=== PATIENT | female | born 1995 | race Hispanic/Latino ===

== ENCOUNTER 2019-04-13 15:29 | Outpatient (CLI) | payer BC ==
--- NOTE | 2019-04-13 16:07 | ULT ---
US Pelvic Trans vag W Doppler HISTORY: , no heart tones noted in office. COMPARISON: None. FINDINGS: Real-time imaging of the pelvis was obtained transabdominally as well as within endovaginal probe. This shows the presence of an intrauterine gestational sac and pole. The crown to rump length measurements are 1.1 cm corresponding to 7 weeks 1 day. Gestational sac measurements are 2.0 cm corresponding to 6 weeks 6 days. No motion or heart activity is seen. The right and left adnexa are normal in appearance. IMPRESSION: Nonviable intrauterine .
== END 2019-04-13 15:30 | disposition home or self-care (01) ==
LOC: SCSULT 15:29
PROVIDERS: ATTEND Family Medicine
DX: O20.0 Threatened abortion (principal)
CPT/HCPCS: 76856

== ENCOUNTER 2019-11-24 13:29 | Outpatient (CLI) | payer BC ==
--- NOTE | 2019-11-24 14:42 | ULT ---
EXAM: OB ultrasound COMPARISON: None HISTORY: female. Evaluate size, dates, and anatomy. TECHNIQUE: Multiplanar grayscale and color Doppler images were obtained in a transabdominal ult rasound. FINDINGS: There is a single live intrauterine with heart rate of 149 bpm. A survey wa s performed which is unremarkable. The head, intracranial structures, heart, stomach, kidneys, umbilical cord, umbilical cord insertion, spine, face, and extremities were evaluated and were unrema rkable. Estimated weight is 326 g. Average age of the fetus based off today's examination is 19 weeks 6 days. BPD 4.34 cm -- 19 weeks 1 day HC 17.00 cm -- 19 weeks 5 days AC 15.43 cm -- 20 weeks 5 days FL 3.05 cm -- 19 weeks 4 days The placenta is anterior in location without focal abnormality. DOROTHY is 11.4 cm which is normal. The cervix is normal in length. There is a low-lying placenta with its tip approximately 1.3 cm from the internal os. There is no evidence of placenta previa. IMPRESSION: 1. Single live intrauterine with estimated age of 19 weeks 6 days. 2. Low-lying placenta
== END 2019-11-24 13:30 | disposition home or self-care (01) ==
LOC: BICULT 13:29
PROVIDERS: ATTEND Family Medicine
DX: Z34.82 Encounter for supervision of other normal pregnancy, second trimester (principal); Z3A.19 19 weeks gestation of pregnancy
CPT/HCPCS: 76805

== ENCOUNTER 2020-01-06 14:58 | Outpatient (CLI) | payer BC ==
--- NOTE | 2020-01-06 16:20 | ULT ---
ULTRASOUND OBSTETRICAL COMPLETE: 01/06/20 HISTORY: ICD-10: O44.422, low lying placenta, NOS or without hemorrhage, second trimester in 24-year-old pre gnant female. FINDINGS: number: Rizvi lie: Breech Maternal cervix: 3.5 cm in length and closed. Placenta: Anterior. Distal tip is approximately 2 to 2.5 cm proximal to the internal cervical os. Amniotic fluid volume: Subjectively within normal limits. DOROTHY not measured. heart rate: 128 bpm The following anatomy is visualized, with no evidence of anomalies: Head, lateral ventricles, cerebellum, spine, upper limbs, lower limbs, four chamber heart, umbilical cord, cord insertion, stomach, kidneys, and bladder. Nose and lips not visualized. biometry: Head circumference (HC): 24.8 cm 27w 0d Biparietal diameter (BPD): 6.7 cm 26w 6d Abdominal circumference (AC): 23.2 cm 27w 4d Femur length (FL): 5.9 cm 26w 6d Average ultrasound age (AUA): 27w 1d Estimated date of delivery (SOWMYA): 04/05/2020 Last menstrual period (LMP): 07/08/2019 Gestational age by LMP: 26w 0d Estimated weight (EFW): 1034 g +/- 151 g (2 lb. 4 oz. +/- 5 oz.) IMPRESSION: 1. Live late second trimester intrauterine gestation. 2. Estimated gestational age of 27 weeks, 1 day. 3. Breech lie. 4. No anatomical abnormalities, but nose and lips not visualized. 5. Low lying placenta, but no placenta previa. jn [] POS: [facility]
== END 2020-01-06 14:59 | disposition home or self-care (01) ==
LOC: BICULT 14:58
PROVIDERS: ATTEND Family Medicine
DX: O44.42 Low lying placenta NOS or without hemorrhage, second trimester (principal); Z3A.27 27 weeks gestation of pregnancy; O32.1XX0 Maternal care for breech presentation, not applicable or unspecified
CPT/HCPCS: 76815

== ENCOUNTER 2020-03-23 13:37 | Outpatient (CLI) | payer BC ==
--- NOTE | 2020-03-23 16:57 | ULT ---
EXAM: OB ultrasound COMPARISON: 01/06/2020 HISTORY: Low-lying placenta. Follow-up evaluation. TECHNIQUE: Multiplanar grayscale and color Doppler transabdominal sonographic images are obtained. FINDINGS: There is a single intrauterine gestation in cephalic presentation. Cardiac Doppler demonstr ates heart tones with a heart rate of 132 beats per minute. The placenta is located anteriorly without evidence of placenta previa. The placenta was noted to be low-lying on the prior e xam (not appreciated on the current study. Amniotic fluid index is increased measuring 21 cm.. The cervical length based on transabdominal imaging measures 4.9 centimeters. biometry measurements: BPD 9 cm -- 36 weeks 4 days HC 32.74 cm -- 37 weeks 2 days AC 35.77 cm -- 39 weeks 5 days FL 7.15 cm -- 36 weeks 5 days The estimated gestational age by ultrasound is 37 weeks 4 days with an SOWMYA on04/09/2020. Gestational ag e by the last menstrual period is 38 weeks 1 day. The estimated weight by ultrasound is 3460 g (7 pounds, 10 ounces). This represents 68 percenti le for weight. This examination was not performed for evaluation of the anatomical structures IMPRESSION: 1. Single intrauterine gestation in cephalic presentation with heart tones documented. Estimat ed gestational age by ultrasound is 37 weeks 4 days. 2. Estimated weight is 3460 g (7 pounds, 10 ounces). 3. Amniotic fluid index is increased measuring 21 centimeters suggesting polyhydramnios.
== END 2020-03-23 13:38 | disposition home or self-care (01) ==
LOC: BICULT 13:37
PROVIDERS: ATTEND Family Medicine
DX: O44.43 Low lying placenta NOS or without hemorrhage, third trimester (principal); Z3A.37 37 weeks gestation of pregnancy
CPT/HCPCS: 76816

== ENCOUNTER 2020-04-08 14:27 | Inpatient (IN) | payer BC, OTHER ==
[2020-04-09] MEDS: Lactated Ringer's 1,000 ML IV SCH ×2 (01:06→08:39)
[2020-04-09 01:13] VITALS: BMI 35.1
[2020-04-09 01:37] LABS: Mean Corpuscular HGB CONC 35.2 g/dL (32.0-36.0); Mean Corpuscular Hemoglobin 31.3 pg (27.0-31.0); Mean Corpuscular Volume 88.9 fL (78.0-98.0); Mean Platelet Volume 9.1 fL (7.4-10.4); Platelet Count 224 thou/uL (130-400); RBC Distribution Width 11.7 % (11.5-14.5); Red Blood Cell (RBC) Count 4.16 mill/uL (4.20-5.40); White Blood Cell (WBC) Count 8.9 thou/uL (4.8-10.8)
[2020-04-09] MEDS ORDERED: Butorphanol Tartrate 1 MG/ML VIAL SLOW IVP PRN (01:40)
[2020-04-09] MEDS ORDERED: Acetaminophen 500 MG TAB PO PRN (01:40)
[2020-04-09] MEDS ORDERED: Promethazine HCl 25 MG/ML VIAL IM PRN (01:40)
[2020-04-09] MEDS ORDERED: Zolpidem Tartrate 5 MG TAB PO PRN (01:40)
[2020-04-09] MEDS ORDERED: Ondansetron PF 4 MG/2 ML Vial IVP PRN ×2 (01:40→13:41)
[2020-04-09] MEDS ORDERED: Lactated Ringer's 1,000 ML IV PRN (01:41)
[2020-04-09] MEDS ORDERED: Misoprostol 100 MCG TAB VAG SCH (01:45)
[2020-04-09] MEDS ORDERED: NS w/ Oxytocin 10 units 500 ML IVPB SCH (01:45)
[2020-04-09 02:16] LABS: HBSAg Index 0.18 S/CO (0-0.99); Hep B Surf Ag Non-Reactive S/CO (NonReactive)
[2020-04-09 04:59] LABS: Syphilis Antibody Nonreactive (Nonreactive); Syphilis Antibody Index 0.02 S/CO (<1.00 Non-Reactive)
[2020-04-09] MEDS ORDERED: Misoprostol 100 MCG TAB VAG PRN (05:00)
[2020-04-09] MEDS ORDERED: Lidocaine 1% (PF) 30 ML VIAL ONE (10:50)
[2020-04-09] MEDS: NS / Oxytocin 40 units/1000ml 1,000 ML ONE ×2 (11:05→13:10)
[2020-04-09] MEDS ORDERED: Misoprostol 200 MCG TAB ONE (11:14)
[2020-04-09] MEDS ORDERED: Methylergonovine 0.2 MG/ML VIAL ONE (11:23)
--- NOTE | 2020-04-09 11:37 | PDOC.EVN ---
Event Note - Event Note Event Note: Called to LDR by Dr. Kenyon. VS are stable. Pt. with atony s/p . Pit drip, Cytotec MS and Methergine given. Good response noted with minimal bleeding now. Pre delivery HGB=13. EBL estimated at 700 cc. Will observe closely. Recommend Cytotec 200 mcg q 6 hrs x 3-4 doses .
[2020-04-09] MEDS ORDERED: NS / Oxytocin 40 units/1000ml 1,000 ML ONE (13:07)
[2020-04-09] MEDS ORDERED: diphenhydrAMINE 25 MG CAP PO PRN (13:41)
[2020-04-09] MEDS ORDERED: Preparation H Ointment 28 GM TUBE PR PRN (13:41)
[2020-04-09] MEDS ORDERED: hydrALAZINE 20 MG/ML VIAL SLOW IVP PRN (13:41)
[2020-04-09] MEDS ORDERED: NS / Oxytocin 40 units/1000ml 1,000 ML IV SCH (13:41)
[2020-04-09] MEDS ORDERED: traMADol HCl 50 MG TAB PO PRN (13:41)
[2020-04-09] MEDS ORDERED: Milk Of Magnesia 30 ML UDCUP PO PRN (13:41)
[2020-04-09] MEDS ORDERED: Acetaminophen/Codeine 30-300mg Tablet PO PRN (13:41)
[2020-04-09] MEDS ORDERED: Lanolin Ointment 7 GM TUBE TOP PRN (13:41)
[2020-04-09] MEDS ORDERED: Benzocaine-Menthol 82.5 ML CAN TOP PRN (13:41)
[2020-04-09] MEDS ORDERED: Bisacodyl 10 MG SUPP PR PRN (13:41)
[2020-04-09] MEDS ORDERED: HYDROcodone/Acetaminophen 5/325 mg Tablet PO PRN (13:41)
[2020-04-09] MEDS: Docusate Calcium (SURFAK) 240 MG CAP PO SCH ×3 (13:49→23:38)
[2020-04-09] MEDS: Ibuprofen 800 MG TAB PO SCH ×3 (14:04→23:39)
[2020-04-09] MEDS: Ferrous Sulfate 325 MG TAB PO SCH ×2 (14:05→17:16)
[2020-04-09] MEDS: Misoprostol 200 MCG TAB PO SCH ×3 (17:16→23:39)
[2020-04-10 05:40] LABS: Hemoglobin 10.7 g/dL (12.0-16.0); Mean Corpuscular HGB CONC 34.6 g/dL (32.0-36.0); Mean Corpuscular Hemoglobin 30.6 pg (27.0-31.0); Mean Corpuscular Volume 88.3 fL (78.0-98.0); Mean Platelet Volume 8.8 fL (7.4-10.4); Platelet Count 179 thou/uL (130-400); RBC Distribution Width 11.7 % (11.5-14.5); Red Blood Cell (RBC) Count 3.48 mill/uL (4.20-5.40); White Blood Cell (WBC) Count 14.3 thou/uL (4.8-10.8)
[2020-04-10] MEDS: Ibuprofen 800 MG TAB PO SCH (06:56)
[2020-04-10] MEDS: Ferrous Sulfate 325 MG TAB PO SCH (08:29)
[2020-04-10] MEDS: Docusate Calcium (SURFAK) 240 MG CAP PO SCH (08:33)
[2020-04-10 11:43] VITALS: BP 116/62; TEMP 98
== END 2020-04-10 14:00 | disposition home or self-care (01) | DRG 806 ==
LOC: UNDOADMIN 22:41 → L&D 22:41 → 3SW 04-09 14:45
PROVIDERS: ADMIT Family Medicine; ATTEND Family Medicine
PROC: 10E0XZZ Delivery of Products of Conception, External Approach (ICD-10-PCS; principal; 2020-04-09)
PROC: 10907ZC Drainage of Amniotic Fluid, Therapeutic from Products of Conception, Via Natural or Artificial Opening (ICD-10-PCS; 2020-04-09)
DX: O40.3XX0 Polyhydramnios, third trimester, not applicable or unspecified (principal); O72.1 Other immediate postpartum hemorrhage; Z37.0 Single live birth; O70.0 First degree perineal laceration during delivery; Z3A.39 39 weeks gestation of pregnancy
CPT/HCPCS: 36415; 85027; 86780; 86850; 86900; 86901; 87340; 87635; J0595; J2001; J2210; J2590; U0003